=== PATIENT | male | born 1950 | race Caucasian/White ===

== ENCOUNTER 2016-07-19 07:56 | Day surgery (SDC) | payer MEDICARE, BC ==
[~2016-07-19] VITALS: Ht 182.9 cm; Wt 79.4 kg
[2016-07-19 08:21] LABS: HEMOGLOBIN 16.8 g/dL (14.1-18.0); LYMPH # 2.6 K/mm3 (0.7-4.5); LYMPH % 28.8 % (10-50)
[2016-07-19 08:27] LABS: BUN 24 mg/dL (7-18); GFR (ESTIMATED) 75 ML/MIN (>60)
--- NOTE | 2016-07-19 13:22 | RADIOLOGY REPORT PS360 ---
CARDIAC CATHETERIZATION DATE OF CATHETERIZATION:07/19/2016 8:50 AM PROCEDURES: 1. Left heart catheterization 2. Left ventriculogram 3. Selective coronary angiogram 4. FFR to the right coronary artery 5. Drug-eluting stent deployment to the right coronary artery INDICATION FOR TEST: 1. Numerous risk factors for coronary artery disease 2. Angina pectoris class III 3. Abnormal Myoview inferior ischemia 4. Angiographically indeterminate right coronary artery disease in the right coronary artery 5. Ischemic response to adenosine in the right coronary artery 6. Syncope 7. Multiple asystolic pauses 2.5 seconds in duration Informed consent was obtained prior to the procedure. COMPLICATIONS: None ESTIMATED BLOOD LOSS: Less than 10 ml. TECHNIQUE: One percent lidocaine used to anesthetize the right anterior aspect of the wrist. The right radial artery was accessed via the Seldinger technique. A 6 [place] sheath was placed in the right radial artery. 2.5 mg of verapamil, 800 mcg of nitroglycerin and 5000 U Heparin were given through the arterial sheath. The Kristin catheter was inserted into the proximal radial artery and angiography was performed. This demonstrated radial artery was a small artery whereas the ulnar artery was much larger. Patient was experiencing significant pain with manipulation of the catheter therefore I decided to abort the radial access and then performed cardiac catheterization from the right femoral artery. 1% lidocaine was used to anesthetize the right groin in the right femoral artery was accessed via Seldinger technique. A 4 [place] sheath was placed in the right femoral artery and a JL 4 JR4 catheter were used to perform left heart catheterization left ventriculogram and selective coronary angiography. The right coronary artery was a nondominant vessel however there was a moderate risk stress test combined with inferior ischemia. Furthermore patient was having significant conduction abnormalities with asystolic pauses and syncope. Although nondominant given patient's symptoms of angina combined with syncope and conduction abnormalities I felt this vessel should undergo confirmatory FFR due to its angiographic indeterminate. An additional 3000 units of heparin was administered intravenously and the 4 [place] sheath was exchanged for a 6 [place] sheath. The JR4 catheter was placed in the ascending aorta and an FFR wire was normalized.. An ACT was measured at 310 seconds. The guide catheter was used intubate the right coronary artery and FFR was advanced distally. Adenosine was infused in the FFR index to 0.76. Patient started having significant chest pain and coughing therefore the test was terminated prior to the 2 minutes given the positive ischemic response to adenosine. A 2.25 x 12 mm resolute stent was deployed at 14 yue in the area of interest in the mid right coronary artery. A wire was pulled back however spasm was identified therefore 700 mcg of nitroglycerin was administered intracoronary and repeat angiography demonstrated wide patency of the right coronary artery with WILIAN-3 flow present before and after the procedure. At the end of the procedure the apparatus was removed the groin was reprepped closure changed sheath was removed good hemostasis was achieved using Perclose the patient transferred to the postop holding area in stable condition. Prior to the left groin access the right radial artery sheath was removed and a TR band was placed achieving good hemostasis. 600 mg of Plavix was administered orally prior to the procedure. Patient transferred the postop holding area in stable condition with plans to monitor patient overnight and if conduction abnormalities continue he will likely undergo permanent pacemaker placement in the morning. If patient has no additional asystole overnight I may consider monitoring him for an additional period of time and not proceeding with pacemaker placement.. ANGIOGRAPHIC RESULTS: 1. The left main artery normal 2. The left anterior descending artery proximally is normal however there is a concentric 40-50% stenosis immediately after the first septal acupressurist 3. The circumflex artery is a dominant vessel and has proximal 20 and 30% stenoses with an additional 40% concentric stenosis in the mid segment after the first obtuse marginal artery with mild luminal irregularities distally 4. The right coronary artery is a nondominant yet still significant size vessel that reaches the left ventricle. Proximally there is a 30% stenosis followed by 40% stenosis after the RV marginal branch followed by an additional 50% stenosis immediately proximal to an additional mid vessel marginal branch 5. The GONSALEZ ventriculogram reveals hyperdynamic at 75-80% 6. The left ventricular end-diastolic pressure 10 mmHg IMPRESSION: 1. Hemodynamically severe right coronary artery disease 2. Successful stenting of the right coronary artery hemodynamically severe disease reduced to 0% with 1 drug-eluting stent 3. Angiographically moderate disease in the mid LAD and mid dominant circumflex artery 4. Hyperdynamic ventricle 5. Normal left ventricular end-diastolic pressure PLAN: 1. Aspirin and Plavix 2. I would like to monitor this patient overnight to determine if asystole continues. He will be made nothing by mouth after midnight in preparation of a pacemaker in the morning if he continues to have significant pauses overnight. 3. LDL less than 70 4. Risk factor modification
[2016-07-19 15:30] VITALS: BP 151/100
== END 2016-07-19 15:25 | disposition home or self-care (01) ==
LOC: CATHLAB 07:56
PROVIDERS: Internal Medicine
PROC: B2111ZZ Fluoroscopy of Multiple Coronary Arteries using Low Osmolar Contrast (ICD-10-PCS; 2016-07-19)
PROC: B2151ZZ Fluoroscopy of Left Heart using Low Osmolar Contrast (ICD-10-PCS; 2016-07-19)
PROC: 4A033BC Measurement of Arterial Pressure, Coronary, Percutaneous Approach (ICD-10-PCS; 2016-07-19)
PROC: 027034Z Dilation of Coronary Artery, One Artery with Drug-eluting Intraluminal Device, Percutaneous Approach (ICD-10-PCS; 2016-07-19)
PROC: 4A023N7 Measurement of Cardiac Sampling and Pressure, Left Heart, Percutaneous Approach (ICD-10-PCS; principal; 2016-07-19 08:30)
DX: I25.119 Atherosclerotic heart disease of native coronary artery with unspecified angina pectoris (principal); R94.39 Abnormal result of other cardiovascular function study; I25.9 Chronic ischemic heart disease, unspecified; I49.5 Sick sinus syndrome; Z72.0 Tobacco use; I11.9 Hypertensive heart disease without heart failure
CPT/HCPCS: C1725; C1760; C1769; C1876; J1644; Q9967